=== PATIENT | male | born 1990 | race Caucasian/White ===

== ENCOUNTER 2022-07-19 12:11 | Emergency (ER) | payer OTHER ==
[~2022-07-19] VITALS: Ht 167.6 cm; Wt 81.7 kg
[2022-07-19] MEDS ORDERED: CYCL10 PO (16:46)
[2022-07-19] MEDS ORDERED: HYDR1TAB94 PO (16:46)
== END 2022-07-19 17:19 | disposition home or self-care (01) ==
LOC: ER 12:11
DX: S83.206A Unspecified tear of unspecified meniscus, current injury, right knee, initial encounter (principal); X58.XXXA Exposure to other specified factors, initial encounter; I87.2 Venous insufficiency (chronic) (peripheral)
CPT/HCPCS: 73562-RT; A9270; J2270